=== PATIENT | female | born 1980 | race Caucasian/White ===

== ENCOUNTER 2019-05-13 10:14 | Emergency (ER) | payer OTHER ==
[~2019-05-13] VITALS: Ht 170.2 cm; Wt 90.7 kg
== END 2019-05-13 14:19 | disposition home or self-care (01) ==
LOC: ER 10:14
DX: J03.90 Acute tonsillitis, unspecified (principal)

== ENCOUNTER 2020-08-08 20:38 | Emergency (ER) | payer OTHER ==
[~2020-08-08] VITALS: Ht 170.2 cm; Wt 99.8 kg
[2020-08-09] MEDS ORDERED: KETO10TA2 PO (00:32)
[2020-08-09] MEDS ORDERED: ORPHENADRINE C100 MG PO (00:32)
== END 2020-08-09 00:40 ==
LOC: ER 20:38
DX: R10.11 Right upper quadrant pain (principal); M54.89 Other dorsalgia; Z03.818 Encounter for observation for suspected exposure to other biological agents ruled out

== ENCOUNTER 2023-11-25 07:00 | Emergency (ER) | payer OTHER ==
[~2023-11-25] VITALS: Ht 170.2 cm; Wt 75.7 kg
[~2023-11-25 07:00] MED LIST: KETO10TA2 PO; ORPHENADRINE C100 MG PO
[2023-11-25 09:05] LABS: HEMATOCRIT 35.3 % (36.0-45.00); HEMOGLOBIN 11.6 g/dL (12.0-15.00); MEAN CELL VOLUME 84.9 fL (80.00-100.00); MEAN CORPUSCULAR HEMOGLOBIN 27.9 pg (27.00-32.0); MEAN CORPUSCULAR HGB CONC 32.9 g/dl (32.0-36.0); PLATELET COUNT 363 K/uL (150-450); RED BLOOD COUNT 4.16 M/uL (4.00-6.00); RED CELL DISTRIBUTION WIDTH 13.4 % (11.5-14.5)
== END 2023-11-25 11:10 | disposition home or self-care (01) ==
LOC: ER 07:00
DX: J32.8 Other chronic sinusitis (principal); B34.9 Viral infection, unspecified